=== PATIENT | male | born 1970 | race African-American/Black ===

== ENCOUNTER 2016-10-12 10:15 | Outpatient (RCR) | payer OTHER ==
[~2016-10-12 10:15] MED LIST: COLACE 100100 MG/CAP PO; DESYREL 50MG50 MG PO; EFFEXOR-XR150 MG PO; IMITREX 6M6 MG/0.5 M SQ; IMITREX100 MG PO; MINIPRESS 1M1 MG/CAP PO; MINIPRESS 5M5 MG/CAP PO; NAPROSYN500 MG PO; NEURONTIN800 MG/TAB PO; PROAIR HFA0.09 MG/AC IH; RT ADVAIR HFA 1112 G IH; TOPAMAX 25MG25 M1 PO; VIAGRA 25MG TAB25 MG PO; VISTARIL 2525 MG/CAP PO
[2017-03-18] MEDS ORDERED: VENLAFAXINE225 MG PO (11:20)
== END 2016-12-13 | disposition still patient (30) ==
LOC: WSST
DX: Z87.820 Personal history of traumatic brain injury (principal)

== ENCOUNTER → 2016-12-07 | Outpatient (CLI) | payer OTHER ==
[~2016-12-07] MED LIST changes: +VENLAFAXINE225 MG PO
== END ==
LOC: COL.PUL 10:28
DX: J45.40 Moderate persistent asthma, uncomplicated (principal)

== ENCOUNTER → 2017-01-31 | Outpatient (CLI) | payer OTHER | LOC: COL.PUL 01-05 13:00 | DX: J45.40 Moderate persistent asthma, uncomplicated (principal); R06.02 Shortness of breath | CPT/HCPCS: J7674 ==

== ENCOUNTER 2017-03-21 08:39 | Outpatient (CLI) | payer OTHER ==
[2017-03-21] VITALS (7 sets, daily range): BP systolic 126–145; BP diastolic 68–93; PULSE 65–98
[~2017-03-21] VITALS: Ht 185.4 cm; Wt 91.8 kg
== END 2017-03-21 12:17 | disposition home or self-care (01) ==
LOC: COL.RAD 08:39
DX: M43.16 Spondylolisthesis, lumbar region (principal); M48.02 Spinal stenosis, cervical region
CPT/HCPCS: Q9967

== ENCOUNTER → 2017-05-13 | Outpatient (CLI) | payer OTHER | LOC: COL.VAS 05-10 09:45 | DX: R06.02 Shortness of breath (principal) ==